=== PATIENT | male | born 1960 ===

== ENCOUNTER 2022-03-23 23:07 | Emergency (ER) | payer OTHER ==
[2022-03-23] MEDS ORDERED: Acetaminophen 500 MG Tab PO ONE (23:45)
[2022-03-23] MEDS ORDERED: Sodium Chloride 0.9% 1,000 ML IV SCH (23:45)
[2022-03-23] MEDS ORDERED: Benzonatate 100 MG Cap ONE (23:55)
[2022-03-23] MEDS ORDERED: Azithromycin 250 MG Tab ONE (23:55)
[2022-03-24 00:53] LABS: TROPONIN I HIGH SENSITIVITY 37.3 pg/ml (<=60.4)
[2022-03-24] MEDS ORDERED: Calcium Carbonate 500 MG Tab.Chew PO ONE (01:51)
[2022-03-24 06:19] VITALS: BP 114/46; PULSE 96
== END 2022-03-24 02:45 | disposition home or self-care (01) ==
LOC: LB.ED 23:07
DX: R50.9 Fever, unspecified (principal); R79.89 Other specified abnormal findings of blood chemistry; R05.9 Cough, unspecified; Z88.1 Allergy status to other antibiotic agents; Z91.048 Other nonmedicinal substance allergy status; Z20.822 Contact with and (suspected) exposure to COVID-19
CPT/HCPCS: 36415; 71045; 80053; 80307; 82947; 83605; 83735; 84484; 85025; 87040; 87635; 93005; 96360; 99284; A9270; J7030; U0002